=== PATIENT | male | born 1965 | race Caucasian/White ===

== ENCOUNTER 2020-02-29 19:07 | Inpatient (IN) | payer OTHER ==
[~2020-02-29] VITALS: Ht 175.3 cm; Wt 79.7 kg
[~2020-02-29 19:07] MED LIST: KEFLEX500 MG PO; NORCO 5-325 TA1 EACH PO
[2020-02-29 19:13] VITALS: BP 152/94
[2020-02-29] MEDS ORDERED: JANUMET 50-1,01 EACH PO (19:15)
[2020-02-29] MEDS ORDERED: NOVOLOG100 UNIT/M SUBQ (19:16)
[2020-02-29] MEDS ORDERED: LANTUS SUBQ (19:16)
[2020-02-29 20:04] LABS: ABSOLUTE BASOPHILS 0.1 thou/uL (0.0-0.2); ABSOLUTE EOSINOPHILS 0.1 thou/uL (0.0-0.7); ABSOLUTE LYMPHOCYTES 1.9 thou/uL (0.8-5.3); ABSOLUTE MONOCYTES 1.6 thou/uL (0.0-1.2); ABSOLUTE NEUTROPHILS 8.5 thou/uL (1.6-8.1); BASOPHILS 0.9 %; EOSINOPHILS 0.5 %; HEMATOCRIT 48.8 % (42.0-52.0); HEMOGLOBIN 16.2 gm/dL (14.0-18.0); LYMPHOCYTES 15.9 %; MCH 28.9 pg (26.0-34.0); MCHC 33.3 g/dL (28.0-37.0); MCV 86.7 fL (80.0-100.0); MONOCYTES 12.9 %; MPV 7.9 fl. (7.2-11.1); NUCLEATED RBCS 0 /100WBC; PLATELET COUNT* 242 thou/uL (150-400); POLYS 69.8 %; RBC 5.63 mil/uL (4.50-6.00); RDW-CV 13.5 % (10.5-14.5); WBC 12.2 thou/uL (4.0-11.0)
[2020-02-29 20:33] LABS: CREATININE 1.1 mg/dL (0.6-1.3); POTASSIUM 4.1 mmol/L (3.5-5.1)
[2020-02-29 20:38] LABS: ALBUMIN 3.2 g/dL (3.4-5.0); TOTAL BILIRUBIN 0.7 mg/dL (<0.1-1.0); TOTAL PROTEIN 7.8 g/dL (6.4-8.2)
[2020-02-29 23:15] VITALS: BP 139/87
--- NOTE | 2020-03-01 06:37 | NUR ---
NO ACUTE CHANGES THROUGHOUT SHIFT. ALL ROUNDINGS COMPLETED, ALL NEEDS MET. FULL ASSESSMENT COMPLETED CHARTED. BED LOCKED AND IN LOW POSITION. CALL LIGHT AND PERSONAL ITEMS IN REACH.
[2020-03-01 08:26] VITALS: BP 141/92
--- NOTE | 2020-03-01 09:01 | EKG ---
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 [address] 17 17 Sherif Mejia MD, FAC /EPI
[2020-03-01 11:30] VITALS: BP 147/92
--- NOTE | 2020-03-01 15:09 | NUR ---
Pt resides at home alone. Independent. No DME. No hx of HH or SNF. Pt states that he has not seen his listed PCP in a long time, has not had a need to go to the [facility]. Elkin Vizcaino screened for [facility], Pt does not qualify at this time. Pt m/s status, on IVABX
--- NOTE | 2020-03-01 16:35 | NUR ---
PRN PAIN MEDICATION GIVEN. ALSO GIVEN IV MEDICATION PER ORDER FOR HEADACHE. IVF INFUSING. LUNCH TIME INSULIN NOT GIVEN BECAUSE PT DID NOT EAT LUNCH.
[2020-03-01 16:40] VITALS: BP 149/94
[2020-03-02 00:08] VITALS: BP 149/97
[2020-03-02 04:43] LABS: ALBUMIN 2.7 g/dL (3.4-5.0); CALCIUM 8.3 mg/dL (8.5-10.1); CREATININE 0.6 mg/dL (0.6-1.3); MAGNESIUM 1.8 mg/dL (1.8-2.4); POTASSIUM 3.2 mmol/L (3.5-5.1); TOTAL BILIRUBIN 0.9 mg/dL (<0.1-1.0); TOTAL PROTEIN 7.1 g/dL (6.4-8.2)
[2020-03-02 06:01] LABS: HEMOGLOBIN 15.8 gm/dL (14.0-18.0); MCH 28.5 pg (26.0-34.0); MCHC 33.7 g/dL (28.0-37.0); MCV 84.6 fL (80.0-100.0); MPV 7.2 fl. (7.2-11.1); RBC 5.55 mil/uL (4.50-6.00); RDW-CV 13.4 % (10.5-14.5); WBC 14.6 thou/uL (4.0-11.0)
[2020-03-02 07:52] VITALS: BP 129/90
--- NOTE | 2020-03-02 12:38 | NUR ---
Continue ivabx and fluids. M/s status. Anticipate dc to home tomorrow. No needs.
[2020-03-02 17:31] VITALS: BP 121/73
--- NOTE | 2020-03-02 17:40 | NUR ---
PT WITH HEADACHE THIS AM. ONE TIME IV COMPAZINE AND IV BENEDRYL GIVEN PER ORDER. PT RESTED WITH EYES CLOSED AFTER THAT WAS GIVEN. IVF INFUSING. UP AD LILY WITH STEADY GAIT.
[2020-03-03] VITALS: BP 151/95
[2020-03-03 04:42] LABS: HEMATOCRIT 42.4 % (42.0-52.0); HEMOGLOBIN 14.5 gm/dL (14.0-18.0); MCHC 34.2 g/dL (28.0-37.0); MCV 84.7 fL (80.0-100.0); MPV 7.7 fl. (7.2-11.1); RBC 5.01 mil/uL (4.50-6.00); RDW-CV 13.1 % (10.5-14.5); WBC 10.7 thou/uL (4.0-11.0)
[2020-03-03 05:21] LABS: ALBUMIN 2.4 g/dL (3.4-5.0); CALCIUM 8.3 mg/dL (8.5-10.1); CREATININE 0.9 mg/dL (0.6-1.3); MAGNESIUM 1.9 mg/dL (1.8-2.4); POTASSIUM 3.5 mmol/L (3.5-5.1); TOTAL BILIRUBIN 0.6 mg/dL (<0.1-1.0); TOTAL PROTEIN 6.5 g/dL (6.4-8.2)
--- NOTE | 2020-03-03 06:42 | NUR ---
NO ACUTE CHANGES THROUGHOUT SHIFT. ALL ROUNDINGS COMPLETE, ALL NEEDS MET. FULL ASSESSMENT COMPLETED CHARTED. BED LOCKED AND IN LOW POSITION. CALL LIGHT AND PERSONAL ITEMS IN REACH.
[2020-03-03] MEDS ORDERED: MUPIROCIN22 GM TOP (07:31)
[2020-03-03] MEDS ORDERED: ZYVOX600 MG PO (07:31)
[2020-03-03] MEDS ORDERED: IBUPROFEN 800800 M1 PO (07:31)
[2020-03-03 08:30] VITALS: BP 125/80
--- NOTE | 2020-03-03 10:55 | NUR ---
ASSUMED CARE OF PT AT 0730. PT LYING IN BED. A&0X4, COMPLAINS OF PAIN TO FACE. TREATED WITH PRN IBUPROFEN WITH COMPLETE RELIEF. MED SURG STATUS. ON RA SAT UPPER 90'S. DENIES ANY SHORTNESS OF BREATH. IVF. PT RECEIVING IV ROCEPHIN. PT UP AD LILY IN ROOM. PT GOAL FOR TODAY IS PAIN MGMT AND DISCHARGE PLANNING TO HOME. AM ASSESSMENT CHARTED. MEDICATIONS PER MAR. PT REPOSITIONS SELF. HOURLY ROUNDING OBSERVED. BED IN LOW POSITION. CALL LIGHT WITHIN REACH. WILL CONTINUE PLAN OF CARE.
--- NOTE | 2020-03-03 11:54 | NUR ---
Pt discharging to home today. Discussed dc with bam in room, bam stated that they can afford to pay the $49.56 cost at [facility], printed and provided bam with the [employer] coupon.
[2020-03-03 12:00] VITALS: BP 126/81
[2020-03-03 16:02] VITALS: BP 125/80
--- NOTE | 2020-03-03 16:13 | NUR ---
DISCHARGE ORDERS RECEIVED. DISCHARGE INSTRUCTIONS, CARE NOTES, SCRIPTS AND FOLLOW UP APPTS GIVEN TO PT. PT COMMUNICATES UNDERSTANDING OF DISCHARGE TEACHING. IV AND ADMINISTRATIVE SERVICES DIRECTOR REMOVED. PT DISCHARGED WITH ALL BELONGINGS AND PAPERWORK VIA WHEELCHAIR WITH NURSING STAFF TO [facility].
== END 2020-03-03 16:13 | disposition home or self-care (01) | DRG 602 ==
LOC: M.ERS 19:07 → M.TBA-ER 21:43 → M.2W 23:01
PROVIDERS: Emergency Medicine; ADMIT Internal Medicine; ATTEND Internal Medicine
DX: L03.213 Periorbital cellulitis (principal); E11.00 Type 2 diabetes mellitus with hyperosmolarity without nonketotic hyperglycemic-hyperosmolar coma (NKHHC); F15.10 Other stimulant abuse, uncomplicated; B95.62 Methicillin resistant Staphylococcus aureus infection as the cause of diseases classified elsewhere; Z20.828 Contact with and (suspected) exposure to other viral communicable diseases; Z79.4 Long term (current) use of insulin; Z79.899 Other long term (current) drug therapy; Z88.5 Allergy status to narcotic agent

== ENCOUNTER 2020-10-02 00:29 | Emergency (ER) | payer OTHER ==
[~2020-10-02] VITALS: Ht 175.3 cm; Wt 77.1 kg
[~2020-10-02 00:29] MED LIST changes: +IBUPROFEN 800800 M1 PO; +JANUMET 50-1,01 EACH PO; +LANTUS SUBQ; +MUPIROCIN22 GM TOP; +NOVOLOG100 UNIT/M SUBQ; +ZYVOX600 MG PO
[2020-10-02 02:44] LABS: ABSOLUTE BASOPHILS 0.1 thou/uL (0.0-0.2); ABSOLUTE EOSINOPHILS 0.2 thou/uL (0.0-0.7); ABSOLUTE LYMPHOCYTES 2.4 thou/uL (0.8-5.3); ABSOLUTE MONOCYTES 1.1 thou/uL (0.0-1.2); ABSOLUTE NEUTROPHILS 7.7 thou/uL (1.6-8.1); BASOPHILS 0.7 %; EOSINOPHILS 1.3 %; HEMATOCRIT 40.1 % (42.0-52.0); HEMOGLOBIN 14.2 gm/dL (14.0-18.0); LYMPHOCYTES 20.8 %; MCH 30.3 pg (26.0-34.0); MCHC 35.4 g/dL (28.0-37.0); MCV 85.6 fL (80.0-100.0); MONOCYTES 9.9 %; MPV 8.5 fl. (7.2-11.1); NUCLEATED RBCS 0 /100WBC; PLATELET COUNT* 211 thou/uL (150-400); POLYS 67.3 %; RBC 4.68 mil/uL (4.50-6.00); RDW-CV 12.8 % (10.5-14.5); WBC 11.4 thou/uL (4.0-11.0)
[2020-10-02 02:51] LABS: CALCIUM 8.7 mg/dL (8.5-10.1); CREATININE 0.8 mg/dL (0.6-1.3); POTASSIUM 3.7 mmol/L (3.5-5.1)
[2020-10-02] MEDS ORDERED: AUGMENTIN 875-1 EACH PO (04:38)
[2020-10-02] MEDS ORDERED: TRAMADOL 50 MG50 MG PO (04:38)
[2020-10-02 06:00] VITALS: BP 141/97
== END 2020-10-02 06:01 | disposition left against medical advice (07) ==
LOC: M.ERS 00:29
PROVIDERS: Emergency Medicine
DX: L03.113 Cellulitis of right upper limb (principal); E11.9 Type 2 diabetes mellitus without complications; Z88.5 Allergy status to narcotic agent; Z79.4 Long term (current) use of insulin

== ENCOUNTER 2020-10-02 15:27 | Inpatient (IN) | payer OTHER ==
[~2020-10-02] VITALS: Ht 177.8 cm; Wt 83.5 kg
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
[~2020-10-02 15:27] MED LIST changes: +AUGMENTIN 875-1 EACH PO; +TRAMADOL 50 MG50 MG PO
[2020-10-02 15:33] VITALS: BP 170/104
[2020-10-02 16:09] LABS: ABSOLUTE BASOPHILS 0.1 thou/uL (0.0-0.2); ABSOLUTE EOSINOPHILS 0.1 thou/uL (0.0-0.7); ABSOLUTE LYMPHOCYTES 1.6 thou/uL (0.8-5.3); ABSOLUTE MONOCYTES 1.2 thou/uL (0.0-1.2); ABSOLUTE NEUTROPHILS 8.7 thou/uL (1.6-8.1); BASOPHILS 0.8 %; HEMATOCRIT 41.9 % (42.0-52.0); HEMOGLOBIN 14.6 gm/dL (14.0-18.0); LYMPHOCYTES 13.5 %; MCH 30.2 pg (26.0-34.0); MCV 86.3 fL (80.0-100.0); MONOCYTES 10.3 %; MPV 8.4 fl. (7.2-11.1); NUCLEATED RBCS 0 /100WBC; PLATELET COUNT* 218 thou/uL (150-400); POLYS 74.4 %; RBC 4.85 mil/uL (4.50-6.00); WBC 11.8 thou/uL (4.0-11.0)
[2020-10-02 16:18] LABS: CALCIUM 8.5 mg/dL (8.5-10.1); CREATININE 0.7 mg/dL (0.6-1.3)
[2020-10-02 16:23] LABS: ALBUMIN 3.3 g/dL (3.4-5.0); TOTAL BILIRUBIN 0.9 mg/dL (<0.1-1.0); TOTAL PROTEIN 7.2 g/dL (6.4-8.2)
[2020-10-02 17:58] VITALS: BP 147/95
[2020-10-02 18:15] VITALS: BP 143/71
[2020-10-02 19:40] VITALS: BP 169/95
[2020-10-03 07:46] VITALS: BP 151/86
[2020-10-03 15:57] VITALS: BP 160/92
[2020-10-03 20:30] VITALS: BP 138/81
[2020-10-04] VITALS: BP 146/67
[2020-10-04 04:00] VITALS: BP 120/69
[2020-10-04 07:55] VITALS: BP 160/88
[2020-10-04 16:13] LABS: ABSOLUTE BASOPHILS 0.1 thou/uL (0.0-0.2); ABSOLUTE EOSINOPHILS 0.2 thou/uL (0.0-0.7); ABSOLUTE LYMPHOCYTES 2.8 thou/uL (0.8-5.3); ABSOLUTE MONOCYTES 1.5 thou/uL (0.0-1.2); ABSOLUTE NEUTROPHILS 6.1 thou/uL (1.6-8.1); EOSINOPHILS 1.7 %; HEMATOCRIT 46.6 % (42.0-52.0); HEMOGLOBIN 16.2 gm/dL (14.0-18.0); LYMPHOCYTES 26.3 %; MCH 30.4 pg (26.0-34.0); MCHC 34.7 g/dL (28.0-37.0); MCV 87.5 fL (80.0-100.0); MPV 8.7 fl. (7.2-11.1); NUCLEATED RBCS 0 /100WBC; PLATELET COUNT* 229 thou/uL (150-400); RBC 5.33 mil/uL (4.50-6.00); RDW-CV 12.8 % (10.5-14.5); WBC 10.6 thou/uL (4.0-11.0)
[2020-10-04 16:44] VITALS: BP 146/92
[2020-10-04 16:59] LABS: ALBUMIN 2.6 g/dL (3.4-5.0); CALCIUM 8.8 mg/dL (8.5-10.1); CREATININE 0.9 mg/dL (0.6-1.3); POTASSIUM 3.6 mmol/L (3.5-5.1); TOTAL BILIRUBIN 0.4 mg/dL (<0.1-1.0); TOTAL PROTEIN 6.6 g/dL (6.4-8.2)
[2020-10-04 21:00] VITALS: BP 142/76
[2020-10-05 07:55] VITALS: BP 131/81
[2020-10-05] MEDS ORDERED: AUGMENTIN 875-1 EACH PO (09:25)
[2020-10-05] MEDS ORDERED: TRAMADOL 50 MG50 MG PO (09:25)
[2020-10-05] MEDS ORDERED: CLEOCIN HCL300 MG PO (09:25)
[2020-10-05] MEDS ORDERED: IBUPROFEN 800800 M1 PO (09:25)
[2020-10-05] MEDS ORDERED: TYLENOL EXTRA500 MG PO (09:25)
[2020-10-05] MEDS ORDERED: ACIDOPHILUS1 EAC4 PO (09:25)
[2020-10-05 13:03] VITALS: BP 131/81
[2020-10-05 15:14] VITALS: BP 131/81
== END 2020-10-05 14:45 | disposition home or self-care (01) | DRG 579 ==
LOC: M.ERS 15:27 → M.ORTHSURG 16:47 → M.TBA-ER 16:47 → M.ERS 17:59 → M.ORTHSURG 18:05
PROVIDERS: Physician Assistant; ADMIT Internal Medicine; ATTEND Internal Medicine
PROC: 0JBJ0ZZ Excision of Right Hand Subcutaneous Tissue and Fascia, Open Approach (ICD-10-PCS; principal; 2020-10-03)
DX: L03.113 Cellulitis of right upper limb (principal); K85.90 Acute pancreatitis without necrosis or infection, unspecified; L02.511 Cutaneous abscess of right hand; R65.10 Systemic inflammatory response syndrome (SIRS) of non-infectious origin without acute organ dysfunction; M79.89 Other specified soft tissue disorders; K86.9 Disease of pancreas, unspecified; E11.9 Type 2 diabetes mellitus without complications; E80.6 Other disorders of bilirubin metabolism; Z20.822 Contact with and (suspected) exposure to COVID-19; Z79.899 Other long term (current) drug therapy; Z79.4 Long term (current) use of insulin; Z88.5 Allergy status to narcotic agent